=== PATIENT | female | born 2000 | race Caucasian/White ===

== ENCOUNTER 2023-05-25 15:22 | Outpatient (CLI) | payer BC, SELFPAY ==
[2023-05-25 18:54] LABS: GC DNA Amplified* NOT DETECTED (No Detected)
[2023-05-25 19:01] LABS: Chlamydia DNA Amplified* DETECTED (No Detected)
== END 2023-05-25 15:23 | disposition home or self-care (01) ==
PROVIDERS: Visit Provider Physician Assistant
DX: Z11.3 Encounter for screening for infections with a predominantly sexual mode of transmission (principal); Z13.9 Encounter for screening, unspecified
CPT/HCPCS: 87491; 87591

== ENCOUNTER 2025-09-28 10:03 | Outpatient (CLI) | payer BC, SELFPAY | END 2025-09-28 10:04 | disposition home or self-care (01) | LOC: NFLDREF 10-01 11:53 | PROVIDERS: Visit Provider Physician Assistant | DX: N92.6 Irregular menstruation, unspecified (principal) | CPT/HCPCS: 80061; 82947; 83498; 83525; 84146; 84270; 84402; 84403; 84443 ==